=== PATIENT | female | born 1990 | race Caucasian/White ===

== ENCOUNTER 2017-05-06 16:27 | Emergency (ER) | payer OTHER, BC ==
[~2017-05-06] VITALS: Ht 162.6 cm; Wt 66.3 kg
[~2017-05-06 16:27] MED LIST: ADDERALL XR 3030 MG PO; ANUCORT-HC25 MG RC; CIPRO500 MG PO; COLACE100 MG PO; FEOSOL325 MG PO; MOBIC15 MG PO; MOTRIN800 MG PO; NAPROXEN500 MG PO; PRENATABS RX T1 EACH PO; PYRIDIUM100 MG PO; TRILEPTAL75 MG PO
[2017-05-06] MEDS ORDERED: MOTRIN800 MG PO (19:08)
[2017-05-06] MEDS ORDERED: VALIUM2 MG PO (19:08)
[2017-05-06] MEDS ORDERED: ULTRACET1 TABLET PO (19:08)
[2017-05-06 19:33] VITALS: BP 143/71
== END 2017-05-06 19:38 | disposition home or self-care (01) ==
LOC: EME 16:27
DX: S06.0X0A Concussion without loss of consciousness, initial encounter (principal); S16.1XXA Strain of muscle, fascia and tendon at neck level, initial encounter; V49.40XA Driver injured in collision with unspecified motor vehicles in traffic accident, initial encounter; Y92.410 Unspecified street and highway as the place of occurrence of the external cause; Z88.2 Allergy status to sulfonamides
CPT/HCPCS: 99281; 99284